=== PATIENT | female | born 1975 | race Caucasian/White ===

== ENCOUNTER → 2016-03-23 | Outpatient (CLI) | payer OTHER ==
--- NOTE | 2016-03-23 12:15 | MA ---
Screening Digital Mammogram With iCAD Analysis Clinical Indications: Routine screening. Technique: Standard cephalocaudal projections are obtained. Digital breast tomosynthesis was performe d in the MLO projection with reconstruction at 1.0 mm slice thickness and composite MLO views reconst ructed. This examination is processed by the iCAD computer aided detection system. Comparison: Baseline study; no previous mammograms have been performed. Breast density: Type C: Heterogeneously dense. Findings: CAD was reviewed. There is asymmetric opacity in the upper outer and mid left breast. No melton spicious microcalcifications are identified. Impression: Asymmetric opacity in the left breast requires further evaluation, BI-RADS 0. Recommendation: Spot compression assessment of the left breast with ultrasound suggested if the abnor mality persists on diagnostic evaluation. [facility] will send a result letter to the patient. Negative mammography should not preclude additional workup of a clinically suspicious finding. The patient's information is entered into a reminder system with a target due date for her next mammo gram.
== END ==
LOC: FIMAGING 09:14
DX: Z12.31 Encounter for screening mammogram for malignant neoplasm of breast (principal)
CPT/HCPCS: G0202

== ENCOUNTER → 2016-04-01 | Outpatient (CLI) | payer OTHER ==
--- NOTE | 2016-04-01 09:34 | MA ---
Diagnostic Digital Left Mammogram History: Possible focal asymmetry left breast. Comparison: Screening mammogram March 23, 2016. Technique: A true lateral view and 3 spot films of the left breast. Density: C Findings: A focal asymmetry deep in the central slightly outer left breast is confirmed. It measures approximately 11 mm in diameter, approximately 10 cm from the nipple. Impression: Focal asymmetry left breast. Recommendation: Ultrasound to differentiate cyst from solid ,which will be performed shortly BI-RADS 0 additional imaging with ultrasound.
--- NOTE | 2016-04-01 10:35 | US ---
Left Breast Ultrasound, complete History: Possible focal asymmetry left breast Comparison: Diagnostic mammogram earlier, screening a supine mammogram March 23, 2016 Technique: I first performed a directed physical examination. This was followed by ultrasound exam with a high frequency linear transducer. Findings: Physical examination of the upper and outer quadrants and axilla is negative. Ultrasound of the entire breast and axilla is negative. Impression: The density on the mammogram probably represents an island of asymmetrical parenchyma and in retrospect, has internal lucency on the tomosynthesis images. Recommendation: Six-month follow-up left diagnostic mammogram with tomosynthesis to ensure stability, of what is likely an island of asymmetrical parenchyma. I discussed the findings and recommendation with the patient in detail who is in agreement with the plan. I instructed her to perform monthly anderson f breast exam and to return sooner to her physician if she senses any change in the left breast. BI-RADS 3. Probably benign mammographic finding
== END ==
LOC: FIMAGING 08:53
PROVIDERS: ATTEND Family Medicine
DX: Z12.39 Encounter for other screening for malignant neoplasm of breast (principal); N63 Unspecified lump in breast
CPT/HCPCS: G0206